=== PATIENT | female | born 1985 | race Two or more races ===

== ENCOUNTER 2019-04-19 23:52 | Emergency (ER) | payer SELFPAY ==
[~2019-04-19] VITALS: Ht 165.1 cm; Wt 49.4 kg
[2019-04-20 00:03] VITALS: BP 142/77
--- NOTE | 2019-04-20 00:11 | NUR ---
PT STATES "I WILL JUST COME BACK TOMORROW IF MY HEAD STILL HURTS, I HAVE A BABY AT HOME AND I CANT STAY LONG".
== END 2019-04-20 00:37 | disposition left against medical advice (07) ==
LOC: ER 23:52
DX: Z53.21 Procedure and treatment not carried out due to patient leaving prior to being seen by health care provider (principal)